=== PATIENT | male | born 1975 | race Hispanic/Latino ===

== ENCOUNTER 2024-04-26 19:59 | Emergency (ER) | payer BC ==
[~2024-04-26] VITALS: Ht 172.7 cm; Wt 85.3 kg
--- NOTE | 2024-04-26 20:09 | NUR ---
PATIENT TAKEN TO CT AT THIS TIME; ACCOMPANIED BY PRIMARY NURSE
--- NOTE | 2024-04-26 20:11 | ERN ---
General Chief Complaint: Stroke Symptoms Stated Complaint: C/O FACIAL DROOPING, SLURRED SPEECH ONSET 1130 TOD Time Seen by MD: 20:02 History of Present Illness Initial Comments 49-year-old male history of hypertension diabetes presents for facial droop. Patient reports he has been feeling dizzy on and off for the last few days. He possibly has had an unsteady gait. Today around 11:00 a.m. on 04/26/2024 he developed right-sided facial droop. He denies any other neurologic deficits. Denies any vision changes. Denies any recent falls or trauma. No blood thinners. Past Medical History Past Medical History: Diabetes-Type II, High Cholesterol, Hypertension Past Surgical History: Unknown ROS Dictation CONSTITUTIONAL: No chills, no fever, no weakness, no diaphoresis, no malaise. HEAD/FACE: No signs of trauma. EENT: No eye pain, no blurred vision, no tearing, no double vision, no ear pain, no ear discharge, no nose pain, no nasal congestion, no throat pain, no throat swelling, no mouth pain. RESPIRATORY: No cough, no orthopnea, no SOB, no stridor, no wheezing. CARDIOVASCULAR: No chest pain, no edema, no palpitations, no syncope. GASTROINTESTINAL/ABDOMINAL: No abdominal pain, no constipation, no diarrhea, no nausea, no vomiting. GENITOURINARY: No abnormal discharge, no dysuria, no frequent urination, no hematuria. No complaints of pain in the genitals. MUSCULOSKELETAL: No back pain, no gout, no joint pain, no joint swelling, no muscle pain, no muscle stiffness, no neck pain. INTEGUMENTARY: No change in color, no change in hair/nails, no dryness, no lesion, no lumps, no rash. NEUROLOGICAL/PSYCH: Dizziness, right-sided facial droop. HEMATOLOGIC/LYMPHATIC: Not anemic, no history of blood clots, no apparent bleeding, no bruising, glands not swollen. All Systems Negative, Except as Noted. Physical Exam Physical Exam Dictation VITAL SIGNS: Reviewed. GENERAL APPEARANCE: Alert, oriented x3, no acute distress HEAD AND FACE: Non-traumatic. EYES: PERRL, pink conjunctivas, eyelid no trauma, anterior chamber clear. EARS: Pinnas intact and no signs of trauma or erythema. Ear canals clear and no discharge. TMs no erythema. NOSE: No discharge, no bleeding. OROPHARYNX: Mouth normal, teeth no caries, tongue pink. Pharynx clear, no erythema. Tonsils no exudates, no abscesses noted. Mucous membrane moist. NECK: Supple, non-tender, no thyromegaly, no masses, no JVD, no bruits. BREAST: Deferred. CHEST: No tenderness, no crepitus, no paradoxical movement, no retractions. LUNGS: Clear, well-ventilated, symmetric, no rales, no wheezing, no rhonchi, no stridor, good breath sounds bilaterally. HEART: Regular rate, regular rhythm, no murmur, no gallops. VASCULAR: No peripheral edema. ABDOMEN: Soft, positive bowel sounds, nondistended, no guarding, nontender, no rebound, no masses no hepatomegaly, no splenomegaly, no Huber's sign, no hernias. RECTAL: Deferred. GENITAL: Deferred. NEUROLOGICAL: Right-sided facial droop, does not include the forehead. Otherwise EOMI, HELGA. No other neurologic deficits in the arms or legs. No paresthesias MUSCULOSKELETAL: Neck nontender, full range of motion, back nontender, full range of motion. EXTREMITIES: Nontender, full range of motion. SKIN: Color pink, dry, no turgor, no rash, no lacerations, no abrasions, no contusions. LYMPHATICS: Deferred. Stroke Patient?: Ischemic Is Patient Candidate for t-PA?: No Did the Patient Receive t-PA?: No Contraindication for t-PA?: Medical Contraindication NIH STROKE SCALE: NIH STROKE SCALE Response (Comments) Value Level of Consciousness Alert 0 Ask patient month and their age Answers both correct 0 Command to open eyes, make fist and let go Obeys both correct 0 Best gaze (horizontal eye movement) Normal 0 Visual Field Testing No Visual Field Loss 0 Facial Paresis Complete Paralysis 3 Motor Function - Left Arm Normal 0 Motor Function - Right Arm Normal 0 Motor Function - Left Leg Normal 0 Motor Function - Right Leg Normal 0 Limb Ataxia No Ataxia 0 Sensory-pin prick to arms, legs, trunk and face Normal 0 Best Language (describe picture, name items and read) No Aphasia 0 Dysarthria (read several words) Normal Articulation 0 Extinction and Inattention Normal 0 Total 3 Results Laboratory and Microbiology Lab and Micro Result Laboratory Tests Test 04/26/24 20:06 04/26/24 20:20 Whole Blood Glucose 369 MG/DL (70-110) H White Blood Count 8.1 K/uL (4.8-10.8) Red Blood Count 5.50 MIL/uL (4.50-6.20) Hemoglobin 15.3 g/dL (14.0-18.0) Hematocrit 44.5 % (42-54) Mean Corpuscular Volume 80.9 fL (79-99) Mean Corpuscular Hemoglobin 27.8 pg (27.0-33.0) Mean Corpuscular Hemoglobin Concent 34.4 g/dL (32.0-36.0) Red Cell Distribution Width 13.5 % (11.0-15.5) Platelet Count 252 K/uL (130-400) Mean Platelet Volume 10.1 fL (7.5-10.5) Immature Granulocyte % (Auto) 0.6 % (0-1) Neutrophils (%) (Auto) 62.0 % (40.0-77.0) Lymphocytes (%) (Auto) 27.2 % (21.0-51.0) Monocytes (%) (Auto) 8.1 % (3.0-13.0) Eosinophils (%) (Auto) 1.5 % (0.0-8.0) Basophils (%) (Auto) 0.6 % (0.0-5.0) Neutrophils # (Auto) 5.0 K/uL (1.8-7.7) Lymphocytes # (Auto) 2.2 K/uL (1.0-4.8) Monocytes # (Auto) 0.7 K/uL (0.1-1.0) Eosinophils # (Auto) 0.12 K/uL (0.00-0.70) Basophils # (Auto) 0.05 K/uL (0.00-0.20) Absolute Immature Granulocyte (auto 0.05 K/uL (0-1) Nucleated Red Blood Cells 0.0 % (0.0-0.19) Prothrombin Time 10.0 SEC (9.6-11.6) Prothromb Time International Ratio <= 0.93 (0.85-1.15) Activated Partial Thromboplast Time 29.1 SEC (26.3-35.5) Sodium Level 137 mmol/L (136-145) Potassium Level 3.7 mmol/L (3.5-5.1) Chloride Level 101 mmol/L (101-111) Carbon Dioxide Level 22 mmol/L (21-32) Blood Urea Nitrogen 14 mg/dL (7-18) Creatinine 0.9 mg/dL (0.5-1.3) Glomerular Filtration Rate Calc 105 mL/min (>90) Random Glucose 408 mg/dL (70-105) *H Total Calcium 9.2 mg/dL (8.5-10.1) Total Creatine Kinase 66 U/L (21-232) Troponin I High Sensitivity 14 ng/L (4-75) B-Type Natriuretic Peptide 7 pg/mL (0-100) LDL Cholesterol 105 mg/dL (0-99) H MDM COMER MDM CC: R sided facial droop, dizziness Historian; patient Comorbidities: HTN, DM Limitations by social determinates of health: none Differential diagnosis: TIA, stroke, arizmendi's palsy, dissection, etc. Onset of symptoms: 11am 04/26/24. NIHSS 2 for facial paralysis. Taken to CT scanner, code brain. CT head per my independent interpretation: no acute bleed. Patient not a candidate for TNK, onset of symptoms > 4.5 hours. 2039. I spoke with Dr. Maki, teleneurologist. He recommends CTA head and neck. Patient will need an MRI. Patient was not a candidate for TNK since he is outside of the treatment window, >4.5 hours since onset of symptoms. CTA head & neck per my independent interpretation: no acute occlusion, no signs of dissection. EKG: Sinus tachycardia, rate 134, normal axis, good RWP, no STEMI. Labs: CBC normal. Coags normal. BMP glucose 408, otherwise normal. CK normal, BNP normal, troponin normal. All labs ordered & interpreted by me. Patient had mentioned to me some recent chest pain as well on re-evaluation. I got a CTA of the chest as well to r/o dissection. No signs of dissection or PE per my independent interpretation. VS improved in ED, remained mildly tachycardic. BP stable. 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 [place] [facility] [place] [facility]es[place]. Patient accepted. Treatment in ED: ASA PO, 5U regular insulin. Patient transferred in stable condition. ED Course Orders Procedure Category Date Status Time Cbc With Differential LAB 04/26/24 Complete 20:07 Prothrombin Time With LAB 04/26/24 Complete INR 20:07 Partial LAB 04/26/24 Complete Thromboplastin Time 20:07 Ct Head/Brain W/O CT 04/26/24 Resulted Contrast 20:07 Chest 1vw RAD 04/26/24 Resulted 20:07 12 Lead Ekg Tracing- EKG 04/26/24 Complete Technical 20:07 Creatine Kinase, Total LAB 04/26/24 Complete 20:07 Ldl Direct LAB 04/26/24 Complete 20:07 Troponin I High LAB 04/26/24 Complete Sensitivity 20:07 Urinalysis Profile LAB 04/26/24 Logged 20:07 B-Type Natriuretic LAB 04/26/24 Complete Peptide 20:07 Bedside Glucose CPOE 04/26/24 Transmitted Fingerstick 20:07 Basic Metabolic Panel LAB 04/26/24 Complete 20:07 Ct Angio Head And Neck CT 04/26/24 Resulted 20:39 Iohexol (Omnipaque) PHA 04/26/24 Complete 20:50 Ct Chest Pe Protocol CT 04/26/24 Resulted Wwo Cont 20:57 Iohexol (Omnipaque) PHA 04/26/24 Complete 20:59 Aspirin 325mg Ec Tab PHA 04/26/24 Complete (Aspirin 325mg Ec T 21:30 Insulin Regular, PHA 04/26/24 Complete Human 3ml (Humulin R 21:30 Current Medications Medications (Trade) Dose Ordered Sig/Teofilo Route PRN Reason Start Time Stop Time Status Last Admin Dose Admin Aspirin (Aspirin 325mg Ec Tab) 325 mg ONCE ONCE PO 04/26/24 21:30 04/26/24 21:31 DC Insulin Human Regular (humuLIN R 100 UNIT/ML 3ML) 5 unit ONCE ONCE IV 04/26/24 21:30 04/26/24 21:31 DC Iohexol (Omnipaque) 75 ml STK-MED ONCE IV 04/26/24 20:50 04/26/24 20:50 DC Iohexol (Omnipaque) 75 ml STK-MED ONCE IV 04/26/24 20:59 04/26/24 20:59 DC Vital Signs Date Time Temp Pulse Resp B/P (MAP) Pulse Ox O2 Delivery O2 Flow Rate FiO2 04/26/24 21:20 116 20 158/101 99 Room Air* 0 21 04/26/24 20:30 98.4 128 18 168/104 98 Room Air* 0 04/26/24 20:10 130 20 210/114 97 Room Air* 0 04/26/24 20:03 97.5 140 20 226/137 97 Room Air DX & DISP Disposition: Transfer ([facility] for neurology) Departure Impression: Primary Impression: Stroke-like symptoms Additional Impression: Hyperglycemia Critical Time: 30 minutes (Critical Care Procedure NoteAuthorized and Performed by: meTotal critical care time: Approximately 36 minutesDue to a high probability of clinically significant, life threatening deterioration, the p atient required my highest level of preparedness to intervene emergently and I personally spent this critical care time directly and personally managing the patient. This critical care time included obtaining a history; examining the patient; pulse oximetry; ordering and review of studies; arranging urgent treatment with development of a management plan; evaluation of patient's res ponse to treatment; frequent reassessment; and, discussions with other providers.This critical care time was performed to assess and manage the high probability of imminent, life-threatening deterioration that could result in multi-organ failure. It was exclusive of separately billable procedures and treating other patients and teaching time.Please see MDM section and the rest of the note for further information on patient assessment and treatment.) Condition: Stable Referrals: SELF,REFERRAL (PCP) WAQAS BRIZUELA DO Apr 26, 2024 20:11
--- NOTE | 2024-04-26 20:16 | NUR ---
PATIENT BACK FROM CT; ACCOMPANIED BY PRIMARY RN
--- NOTE | 2024-04-26 20:22 | EKG ---
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
[2024-04-26 20:28] LABS: BASOPHILS # (AUTO) 0.05 K/uL (0.00-0.20); BASOPHILS % (AUTO) 0.6 % (0.0-5.0); EOSINOPHILS # (AUTO) 0.12 K/uL (0.00-0.70); EOSINOPHILS % (AUTO) 1.5 % (0.0-8.0); HEMATOCRIT 44.5 % (42-54); IMMATURE GRANULOCYTE ABSOLUTE 0.05 K/uL (0-1); LYMPHOCYTES # (AUTO) 2.2 K/uL (1.0-4.8); LYMPHOCYTES % (AUTO) 27.2 % (21.0-51.0); MEAN CORPUSCULAR HEMOGLOBIN 27.8 pg (27.0-33.0); MEAN CORPUSCULAR HGB CONC 34.4 g/dL (32.0-36.0); MEAN CORPUSCULAR VOLUME 80.9 fL (79-99); MONOCYTES # (AUTO) 0.7 K/uL (0.1-1.0); MONOCYTES % (AUTO) 8.1 % (3.0-13.0); PLATELET COUNT (AUTO) 252 K/uL (130-400); RED CELL DISTRIBUTION WIDTH 13.5 % (11.0-15.5); WHITE BLOOD COUNT (AUTO) 8.1 K/uL (4.8-10.8)
[2024-04-26 20:30] VITALS: TEMP 98.4
--- NOTE | 2024-04-26 20:34 | HMCIMG ---
CT HEAD/BRAIN W/O CONTRAST CLINICAL HISTORY: R sided droop COMPARISON: None TECHNIQUE: Multiple sequential axial images of the head were obtained from the base of the skull through vertex. CT was performed with one or more of the following dose reduction techniques: automated exposure control, adjustment of the mA and/or kV according to patient size, or use of iterative reconstruction technique FINDINGS: The brain parenchyma and CSF spaces are unremarkable. The orbital contents, paranasal sinuses and mastoid air cells are within normal limits. The calvarium is intact. IMPRESSION: There are no acute findings. These findings were called to Dr. Mata.
[2024-04-26 20:41] LABS: INR <= 0.93 (0.85-1.15)
[2024-04-26 20:42] LABS: PARTIAL THROMBOPLASTIN TIME 29.1 SEC (26.3-35.5)
[2024-04-26 20:48] LABS: CREATININE 0.9 mg/dL (0.5-1.3); POTASSIUM 3.7 mmol/L (3.5-5.1)
--- NOTE | 2024-04-26 20:49 | NUR ---
PATIENT TAKEN TO CT AT THIS TIME AGAIN; ACCOMPANIED BY PRIMARY RN
[2024-04-26] MEDS ORDERED: IOHEXOL-350 75 ML VIAL IV ONE ×2 (20:50→20:59)
[2024-04-26 20:53] LABS: B-TYPE NATRIURETIC PEPTIDE 7 pg/mL (0-100)
--- NOTE | 2024-04-26 21:10 | NUR ---
PATIENT BACK FROM CT AT THIS TIME; PRIMARY AT BEDSIDE
--- NOTE | 2024-04-26 21:21 | HMCIMG ---
CT CHEST PE PROTOCOL WWO CONT CLINICAL HISTORY: TACHYCARDIA; CP COMPARISON: None TECHNIQUE: CT angiography of the chest was performed both before and after intravenous contrast administration. The study was performed using angiographic technique with maximum intensity projection reconstruction images. Patient was given 75 ml of Omnipaque through intravenous route. CT was performed with one or more of the following dose reduction techniques: automated exposure control, adjustment of the mA and/or kV according to patient size, or use of iterative reconstruction technique FINDINGS: There is minimal linear atelectasis in the left lower lobe. The lungs are otherwise clear. There are no filling defects within the pulmonary arterial vasculature to suggest a pulmonary embolism. The aorta is intact with no dissection flaps or aneurysmal dilatation. There is diffuse fatty infiltration liver. Spleen is unremarkable. There are bilateral nonobstructive renal calculi. The mediastinum is free of pathologic size lymph nodes. There is mild calcified coronary artery disease. The bony structures are unremarkable. IMPRESSION: No CT angiographic evidence of pulmonary embolus is seen. Mild calcified coronary disease. Nephrolithiasis. Fatty liver.
--- NOTE | 2024-04-26 21:32 | HMCIMG ---
CT ANGIO HEAD AND NECK REASON: stroke symptoms TECHNIQUE: Images were obtained from thoracic inlet through the vertex of the skull before and after bolus IV infusion of 75 ml of Omnipaque 350. 2D and 3D multiplanar reconstruction images were obtained in the head and neck. CT was performed with one or more of the following dose reduction techniques: automated exposure control, adjustment of the mA and/or kV according to patient size, or use of iterative reconstruction technique FINDINGS: Post contrast images in the neck show normal-appearing common and internal carotid arteries. Bifurcations appear unremarkable. There is no evidence of atherosclerotic change or focal narrowing. Images in the brain demonstrate normal-appearing internal carotid arteries. Anterior, middle and posterior cerebral arteries appear normal. Posterior fossa vessels are unremarkable as well. There is no evidence of aneurysm or AVM. There is no evidence of focal vessel occlusion. IMPRESSION: Normal CT angiography of the head and neck.
--- NOTE | 2024-04-26 21:49 | HMCIMG ---
CHEST 1VW CLINICAL HISTORY: stroke w/u COMPARISON: CT scan 04/26/2024 TECHNIQUE: Single view of the chest was obtained. FINDINGS: There is minimal atelectasis in the right lung base. The cardiac size and mediastinum are unremarkable. The bony structures are within normal limits. IMPRESSION: Minimal atelectasis in the right lower lobe.
[2024-04-26] MEDS: ASPIRIN 325MG EC TAB PO ONE (22:01)
[2024-04-26] MEDS: INSULIN humuLIN R 100 UNIT/ML 3ML IV ONE (22:04)
[2024-04-26 22:45] VITALS: BP 155/100; PULSE 108; RESP 19; O2SAT 98
--- NOTE | 2024-04-26 23:15 | NUR ---
PATIENT REPORT GIVEN [place] [facility] [place]
--- NOTE | 2024-04-26 23:15 | NUR ---
[facility] HERE FOR TRANSFER
== END 2024-04-26 23:15 | disposition short-term general hospital (02) ==
LOC: EDH 19:59
DX: E11.65 Type 2 diabetes mellitus with hyperglycemia (principal); E78.00 Pure hypercholesterolemia, unspecified; I10 Essential (primary) hypertension; I25.10 Atherosclerotic heart disease of native coronary artery without angina pectoris
CPT/HCPCS: 99291; 71270; 96374; 71045; 82550; 83721; 84484; 80048; 83880; 85025; 85610; 85730; 82948; 36415; 70496; 70498; 93005; 70450; J1815; Q9967 ×2